=== PATIENT | female | born 1950 | race Caucasian/White ===

== ENCOUNTER 2022-08-12 09:53 | Emergency (ER) | payer MEDICARE ==
[2022-08-12 10:20] VITALS: BP 177/70; PULSE 61; O2SAT 99
--- NOTE | 2022-08-12 10:21 | ERPHSYRPT ---
- History of Present Illness Time Seen by Provider: 08/12/22 10:17 Source: patient Exam Limitations: other (Baseline dementia) Physician History: Patient is a 72-year-old female presents to our ED with her son for evaluation to pain at the anterior aspect of her right leg. Patient's son observed the area to be somewhat swollen. He pushed on it. Patient expressed pain. Patient brought patient to our ED for an examination. Patient's primary care doctor is Dr. Mendez. Patient resting comfortably. Patient declined pain medication. Patient has early dementia. Patient's son providing most of the information for this HPI. They have no other complaints. No other signs of trauma. No obvious falls. No headache. No neck pain. Cervical spine cleared clinically. No chest pain or shortness of breath. No nausea vomiting or diaphoresis. Patient has no other complaints. Son voices no other complaints or concerns at this time. Portions of this note were created with voice recognition technology. There may be grammatical, spelling, punctuation or sound alike errors Method of Injury: direct blow (Son suspects direct blow versus a fall. However patient has no signs of other trauma.) Occurred: other (Based on the resolving bruise it appears that the injury was several days ago) Quality: other (No significant pain at this time. Pain only occurs upon palpation. Patient ambulatory) Severity of Pain-Max: mild Severity of Pain-Current: none Lower Extremities Pain: leg: right Modifying Factors: Improves With: other Associated Symptoms: none (Palpation) - Review of Systems Constitutional: No Symptoms, No Fever, No Chills Eyes: No Symptoms Ears, Nose, & Throat: No Symptoms Respiratory: No Symptoms, No Cough, No Dyspnea Cardiac: No Symptoms, No Chest Pain, No Edema, No Syncope Abdominal/Gastrointestinal: No Symptoms, No Abdominal Pain, No Nausea, No Vomiting, No Diarrhea Genitourinary Symptoms: No Symptoms, No Dysuria Musculoskeletal: No Symptoms, No Back Pain, No Neck Pain Skin: No Symptoms, No Rash Neurological: No Symptoms, No Dizziness, No Focal Weakness, No Sensory Changes Psychological: No Symptoms Endocrine: No Symptoms Hematologic/Lymphatic: No Symptoms Immunological/Allergic: No Symptoms All Other Systems: Reviewed and Negative - Past Medical History Neurological History: No Pertinent History Cardiac History: No Pertinent History Respiratory History: No Pertinent History Endocrine Medical History: Diabetes Type II Musculoskeletal History: Osteoarthritis - Physical Exam General Appearance: no apparent distress, alert Eyes, Ears, Nose, Throat Exam: normal ENT inspection, moist mucous membranes Neck Exam: normal inspection, non-tender, supple Cardiovascular/Respiratory Exam: chest non-tender, normal breath sounds, regular rate/rhythm, no respiratory distress Gastrointestinal/Abdominal Exam: non-tender, guarding Back Exam: normal inspection, No vertebral tenderness Hips Exam: bilateral: non-tender, normal inspection, normal range of motion, no evidence of injury Legs Exam: right leg: pain, soft tissue tenderness, swelling, other (Resolving bruise to right anterior leg middle third. Overlying soft tissue intact. No open or draining lesions. Compartments are soft. PT DP pulse palpable. No pain at adjacent joints. No pain at hip knee or ankle/foot), left leg: non-t poncho, normal inspection, normal range of motion, no evidence of injury Knees Exam: bilateral knee: non-tender, normal inspection, normal range of motion, no evidence of injury Ankle Exam: bilateral ankle: non-tender, normal inspection, normal range of motion, no evidence of injury Foot Exam: bilateral foot: non-tender, normal inspection, normal range of motion, no evidence of injury Neuro/Tendon Exam: normal sensation, normal motor functions Mental Status Exam: alert, oriented x 3, cooperative Skin Exam: normal color, warm, dry SpO2 Interpretation: normal O2 Delivery: Room Air - Course Nursing assessment & vital signs reviewed: Yes - Radiology Exams Lower Leg X-ray Interpretation: Interpreted by me (No fracture dislocation. Minimal soft tissue swelling.) Ordered Tests: Active Orders 24 hr Category Date Time Status LOWER LEG Stat Exams 08/12/22 10:06 Ordered - Progress Progress Note: Patient reassessed. She is resting comfortably. Physical exam reveals a resolving bruise/ends swelling to the anterior third of the right tibia. Overlying soft tissue intact. The involved extremity is neurovascular intact distally. Compartments are soft. Cap refill less than 2 seconds. Patient declined pain medication. Complexity of problem addressed is low, acute uncomplicated. No critical care time Complexity of data reviewed and analyzed is moderate. Dr. Cox ordered and independently reviewed the x-rays. Formal reading pending. Patient's son served as independent historian. Risk of complication and or risk morbidity/mortality of patient management is low. Patient received an x-ray of the involved right lower extremity. No fractures or dislocations observed. Patient declined pain medication. Discharge home. Patient agrees to follow-up with her primary care doctor, Dr. Mendez within 48 hours for reevaluation. Vital stable. Time spent to discharge patient is approximately 10 minutes. No social determinants of health present to impede follow-up. Son/patient voices no other complaints or concerns at this time. Portions of this note were created with voice recognition technology. There may be grammatical, spelling, punctuation or sound alike errors 08/12/22 10:21 Counseled pt/family regarding: diagnosis, need for follow-up, rad results - Departure Departure Disposition: Home Clinical Impression: Leg pain, Contusion of leg, right Condition: Stable Critical Care Time: No Referrals: MARYCARMEN GRULLON, [Primary Care Provider] - Follow up/PCP as directed Additional Instructions: Discharge/Care Plan JESSICA BAUM was seen on 08/12/22 in the Emergency Room. The patient was counseled regarding Diagnosis,Lab results, Imaging studies, need for follow up and when to return to the Emergency Room. Prescriptions given: Discharge Note I have spoken with the patient and/or caregivers. I have explained the patient's condition, diagnosis and treatment plan based on the information available to me at this time. I have answered the patient's and/or caregiver's questions and addressed any concerns. The patient and/or caregivers have as good understanding of the patient's diagnosis, condition and treatment plan as can be expected at this point. The vital signs have been stable. The patient's condition is stable and appropriate for discharge from the emergency department. The patient will pursue further outpatient evaluation with the primary care physician or other designated or consulting physician as outlined in the discharge instructions. The patient and/or caregivers are agreeable to this plan of care and follow-up instructions have been explained in detail. The patient and/or caregivers have received these instruction. The patient/and or caregivers are aware that any significant change in condition or worsening of symptoms should prompt an immediate return to this or the closest emergency department or call 911.
--- NOTE | 2022-08-12 11:09 | XRAY ---
CLINICAL HISTORY:Fall with pain and swelling. COMPARISON:None; TECHNIQUES:X-ray right leg AP and lateral views, including the ankle and knee joint. FINDINGS: Linear hypodense line seen through the fibular head representing fracture. Normal bone mineralization. Radiological examination of right tibia and fibula demonstrates no lytic or sclerotic bone lesion. Visualized parts of the knee and ankle joints appear unremarkable. Soft tissues appear unremarkable. IMPRESSION: Suspected right fibular head fracture seen. Clinical correlation with point of maximum tenderness is suggested and further evaluation by CT scan/MRI may be considered. DISCLAIMER: A subtle bone abnormality or fracture may not be readily apparent on x-rays, thus clinical correlation and further imaging including follow-up CT, MRI, or follow-up x-rays are advised as needed. Electronically Signed by: Rupesh Mendoza MD. (08/12/2022 09:59:35 TRAINING AND DEVELOPMENT PROJECT LEADER)
== END 2022-08-12 10:37 | disposition home or self-care (01) ==
LOC: ED 09:53
DX: S80.11XA Contusion of right lower leg, initial encounter (principal); M79.661 Pain in right lower leg; R22.41 Localized swelling, mass and lump, right lower limb; E11.9 Type 2 diabetes mellitus without complications
CPT/HCPCS: 73590; 99282

== ENCOUNTER 2023-01-25 16:28 | Emergency (ER) | payer MEDICARE ==
[2023-01-25 17:13] VITALS: BP 184/70; PULSE 56; RESP 17; TEMP 97.8; O2SAT 97
[2023-01-25] MEDS ORDERED: TYLENOL 325 MG PO STA (17:21)
[2023-01-25] MEDS ORDERED: TYLENOL 325 MG ONE (17:31)
--- NOTE | 2023-01-25 17:51 | ERPHSYRPT ---
- History of Present Illness Time Seen by Provider: 01/25/23 16:46 Source: patient, family Exam Limitations: no limitations Patient Subjective Stated Complaint: Patient reports she fell at home X 2 today. She states she hurt her left shoulder when she fell the first time but it really hurts after she fell the second time. Denies hitting her head with either fall. Triage Nursing Assessment: Patient brought back to ER in a W/C. She is alert and oriented. Transferred self from W/C to bed without difficulties. No SOB. Skin tone normal. Left radial pulse present and strong. Tenderness present to left shoulder. Physician History: 72-year-old female with history of hypertension, hyperlipidemia, GERD, diabetes mellitus, issues with balance presented in the ER with chief complaint of fall with left shoulder pain. Patient reports she was on a stepstool, lost her balance and fell on her left shoulder. She reports hitting the side of bed. Did not hit her head. No loss of consciousness. Son was in another room when patient was trying to get up immediately. No loss of consciousness. No vomiting. Patient reported initially she was feeling better but now she started to have some pain more in the shoulder area, reproducible with movements of shoulder. No numbness or tingling in the left upper extremity. Denies any neck pain. No chest pain palpitations or shortness of breath. Patient has minimal restricted range of motion of the left shoulder. Has tenderness in the distal clavicle/acromioclavicular area. No crepitus. Distal neurovascular well intact. She is offered pain medication but does not want anything but Tylenol which she is given. She is not confused or altered at all and on repeated questioning denies hitting her head or injury anywhere else. X-rays shoulder I do not see any dislocation or obvious fracture except for fracture of the distal end of clavicle. X-rays are reviewed by me, official report is pending. Patient has no chest wall tenderness. She is placed in a sling and recommended outpatient orthopedics follow-up. It was a mechanical fall, do not think needs any other imaging or work-up and is stable for discharge. Allergies/Adverse Reactions: No Known Drug Allergies Allergy (Verified 01/25/23 17:06) Home Medications: Acarbose [Precose] 50 mg PO TID 08/12/22 [History] Albuterol Sulfate [Albuterol Sulfate Hfa] 2 inh IH Q6H 08/12/22 [History] Atorvastatin Calcium 10 mg PO DAILY 08/12/22 [History] Ergocalciferol (Vitamin D2) [Vitamin D2] 1 cap PO WEEKLY 08/12/22 [History] Insulin Lispro [Humalog Kwikpen U-100] 3 unit SQ TIDAC 08/12/22 [History] Losartan Potassium 100 mg PO DAILY 08/12/22 [History] Metoprolol Tartrate [Lopressor] 100 mg PO BID 08/12/22 [History] Omeprazole 20 mg PO DAILY 08/12/22 [History] Umeclidinium Brm/Vilanterol Tr [Anoro Ellipta 62.5-25 Mcg INH] 1 each IH DAILY 08/12/22 [History] hydroCHLOROthiazide [Hydrochlorothiazide] 12.5 mg PO DAILY 08/12/22 [History] Hx Tetanus, Diphtheria Vaccination/Date Given: Yes Hx Influenza Vaccination/Date Given: Yes Hx Pneumococcal Vaccination/Date Given: Yes Immunizations Up to Date: Yes Travel Risk - International Travel Have you traveled outside of the country in past 3 weeks: No - Coronavirus Screening Are you exhibiting any of the following symptoms?: No Close contact with a COVID-19 positive Pt in past 14-21 Days: No - Vaccine Status Have you recieved a Covid-19 vaccination: Yes 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[employer] - Vaccination Dates Date of 2cond Vaccination (if applicable): 2020 - Review of Systems Constitutional: No Symptoms Eyes: No Symptoms Ears, Nose, & Throat: No Symptoms Respiratory: No Symptoms Cardiac: No Symptoms Abdominal/Gastrointestinal: No Symptoms Genitourinary Symptoms: No Symptoms Musculoskeletal: Fall, Joint Pain Skin: No Symptoms Neurological: No Symptoms Psychological: No Symptoms Hematologic/Lymphatic: No Symptoms Immunological/Allergic: No Symptoms - Past Medical History Pertinent Past Medical History: Yes Neurological History: No Pertinent History Cardiac History: Hypertension Respiratory History: COPD, Sleep Apnea Endocrine Medical History: Diabetes Type II Musculoskeletal History: Fractures, Osteoarthritis - Past Surgical History Past Surgical History: Yes Female Surgical History: Tubal Ligation - Social History Smoking Status: Former smoker Exposure to second hand smoke: No Drug Use: none Patient Lives Alone: No (son) - Nursing Vital Signs Nursing Vital Signs: Initial Vital Signs Pulse Rate 61 01/25/23 17:02 Blood Pressure 184/70 01/25/23 17:02 O2 Sat by Pulse Oximetry 96 01/25/23 17:02 Pain Scale Pain Intensity 9 - Physical Exam General Appearance: no apparent distress, alert Eyes, Ears, Nose, Throat Exam: normal ENT inspection Neck Exam: normal inspection, non-tender, supple, full range of motion, No meningismus Cardiovascular/Respiratory Exam: chest non-tender, normal breath sounds, regular rate/rhythm Abdominal Exam: non-tender, soft, no organomegaly Back Exam: normal inspection, normal range of motion, No CVA tenderness, No vertebral tenderness Shoulder Exam: normal inspection, bone tenderness, limited ROM, soft tissue tenderness Elbow/Forearm Exam: normal inspection, non-tender, no evidence of injury, normal ROM Wrist Exam: normal inspection, non-tender, no evidence of injury, normal ROM Neuro/Tendon Exam: normal sensation, normal motor functions Mental Status Exam: alert, oriented x 3, cooperative Skin Exam: normal color SpO2 Interpretation: normal SpO2: 97 O2 Delivery: Room Air Ordered Tests: Active Orders 24 hr Category Date Time Status CLAVICLE Stat Exams 01/25/23 17:20 Taken SHOULDER Stat Exams 01/25/23 17:05 Taken Medication Summary Discontinued Medications Generic Name Dose Route Start Last Admin Trade Name Yonatan PRN Reason Stop Dose Admin Acetaminophen 975 mg 01/25/23 17:21 01/25/23 17:32 Acetaminophen 325 Mg Tablet PO 01/25/23 17:22 975 mg STAT STA Administration Acetaminophen Confirm 01/25/23 17:31 Acetaminophen 325 Mg Tablet Administered 01/25/23 17:32 Dose 975 mg .ROUTE .STK-MED ONE - Progress Progress: pain not gone completely, re-examined Progress Note: 01/25/23 17:50 72-year-old female with history of hypertension, hyperlipidemia, GERD, diabetes mellitus, issues with balance presented in the ER with chief complaint of fall with left shoulder pain. Patient reports she was on a stepstool, lost her balance and fell on her left shoulder. She reports hitting the side of bed. Did not hit her head. No loss of consciousness. Son was in another room when patient was trying to get up immediately. No loss of consciousness. No vomiting. Patient reported initially she was feeling better but now she started to have some pain more in the shoulder area, reproducible with movements of shoulder. No numbness or tingling in the left upper extremity. Denies any neck pain. No chest pain palpitations or shortness of breath. Patient has minimal restricted range of motion of the left shoulder. Has tenderness in the distal clavicle/acromioclavicular area. No crepitus. Distal neurovascular well intact. She is offered pain medication but does not want anything but Tylenol which she is given. She is not confused or altered at all and on repeated questioning denies hitting her head or injury anywhere else. X-rays shoulder I do not see any dislocation or obvious fracture except for fracture of the distal end of clavicle. X-rays are reviewed by me, official report is pending. Patient has no chest wall tenderness. She is placed in a sling and recommended outpatient orthopedics follow-up. It was a mechanical fall, do not think needs any other imaging or work-up and is stable for discharge. Counseled pt/family regarding: diagnosis, need for follow-up, rad results Medical Desision Making - Independent Historian Additional History obtained from: Child, Family - Diagnostic Testing Diagnostic test were ordered, analyzed, and reviewed by me: Yes Radiological Interpretation: Interpreted by me, Reviewed by me - Departure Departure Disposition: Home Clinical Impression: Closed fracture of distal clavicle, Fall, Shoulder contusion Condition: Stable Critical Care Time: No Referrals: WING KRAMER DO [Primary Care Provider] - Follow up with PCP 1 day ORTHO - JAYY LANGLEY NP [NON-STAFF PHY W/O PRIVILEGES] - Follow up/PCP as directed (Tomorrow for reevaluation) Instructions: Preventing Falls ED, Broken Collarbone (DC), Head Injury in Adults (DC) Additional Instructions: Intermittent ice application. Tylenol as needed for pain. Use cane for walker to avoid a fall. Follow-up with primary care and orthopedist for reevaluation in 1 to 2 days. Return to ER for any worsening. Follow head injury ins tructions return to ER for any signs symptoms of head injury like intractable headache, vomiting, numbness tingling weakness, not acting at herself.
--- NOTE | 2023-01-25 18:06 | XRAY ---
Indication: Pain following fall. Comparison: None 2 view left clavicle demonstrates minimally displaced fracture distal shaft clavicle. Incidental osteopenia. No other bony, articular, or soft tissue abnormalities.
--- NOTE | 2023-01-25 18:06 | XRAY ---
Indication: Pain following fall. Comparison: None 3 view left shoulder demonstrates minimally displaced fracture distal shaft clavicle. Incidental osteopenia and tiny mid lung calcified granuloma. No other bony, articular, or soft tissue abnormalities.
== END 2023-01-25 18:08 | disposition home or self-care (01) ==
LOC: ED 16:28
DX: S42.032A Displaced fracture of lateral end of left clavicle, initial encounter for closed fracture (principal); S40.012A Contusion of left shoulder, initial encounter; W08.XXXA Fall from other furniture, initial encounter; Y92.003 Bedroom of unspecified non-institutional (private) residence as the place of occurrence of the external cause; E78.5 Hyperlipidemia, unspecified; I10 Essential (primary) hypertension; E11.9 Type 2 diabetes mellitus without complications; Z79.4 Long term (current) use of insulin; Z79.899 Other long term (current) drug therapy
CPT/HCPCS: 73000; 73030; 99283; A9270-GY

== ENCOUNTER 2024-02-27 13:43 | Emergency (ER) | payer MEDICARE ==
[2024-02-27 14:01] VITALS: TEMP 98.4
[2024-02-27 14:37] LABS: BASOPHIL % 0.7 % (0.1-1.2); Basophil (Absolute #) 0.03 x10^3/uL (0.01-0.08); Eosinophil % 0.2 % (0.7-5.8); Eosinophil (Absolute #) 0.01 x10^3/uL (0.04-0.36); Hematocrit 38.2 % (34.1-44.9); Hemoglobin 13.4 g/dL (11.2-15.7); IMMATURE GRAN # 0.01 x10^3u/L (0.001-0.031); IMMATURE GRAN % 0.2 % (0.001-0.429); Lymphocyte (Absolute #) 0.85 x10^3/uL (1.18-3.74); Lymphocytes % 20.6 % (19.3-51.7); Mean Cell Volume 96.2 fL (79.4-94.8); Mean Corpuscular Hemoglobin 33.8 pg (25.6-32.2); Mean Corpuscular Hgb Concent. 35.1 g/dL (32.2-35.5); Mean Platelet Volume 10.2 fL (9.4-12.3); Monocyte (Absolute #) 0.52 x10^3/uL (0.24-0.86); Monocytes % 12.6 % (4.7-12.5); Neutrophil % 65.7 % (34.0-71.1); Platelet Count 147 x10^3/uL (182-369); Red Blood Count 3.97 x10^6/uL (3.93-5.22); Red Cell Distribution Width 11.9 % (11.7-14.4); White Blood Count 4.1 x10^3/uL (3.98-10.04)
[2024-02-27 14:53] LABS: ALBUMIN 4.3 g/dL (3.5-5.0); ANION GAP 12.6 MEQ/L (5-15); BILIRUBIN,TOTAL 0.8 mg/dL (0.2-1.3); Creatinine 1 0.72 mg/dL (0.52-1.04); EST GLOMERULAR FILTRATION RATE 88.8 ML/MIN; MAGNESIUM 1.5 mg/dL (1.6-2.3); Potassium 4.2 mmol/L (3.5-5.1); Total Protein 6.6 g/dL (6.3-8.2)
[2024-02-27 15:16] LABS: Appearance Clear (Clear); Bacteria None Seen /HPF (None Seen); Bilirubin Negative (Negative); Blood Negative (Negative); Epithelial Cells None Seen /HPF (None Seen); Glucose, Urine Negative (Negative); Hyaline Casts NONE SEEN /LPF (0-2); Ketones Negative (Negative); Leukocyte Esterase Negative (Negative); Nitrite Negative (Negative); Ph 5.5 (4.6-8.0); Protein,Urine Dip Negative (Negative); RBC 0-2 /HPF (0-5); Urobilinogen 0.2 mg/dL (0.2); WBC 0-2 /HPF (0-5)
--- NOTE | 2024-02-27 15:20 | XRAY ---
CLINICAL HISTORY: gen weakness, gait changes COMPARISON: None. TECHNIQUE: An axial non-contrast CT scan of the brain was performed from the skull base to the high parietal region. One of the following dose reduction techniques was utilized for this exam: Automated exposure control, adjustment of the mA and/or kV according to patient size, and use of iterative reconstruction. FINDINGS: Mild symmetrical dilatation of the supratentorial ventricles. General atrophic changes, with Deepening of the cortical sulci, basal cisterns, and sylvian fissures. Small hypodense focus at the right hippocampal region, maybe a small cyst, rather than an old lacunar infarct. Densely calcified pineal body. Normal CT features of the basal ganglia, internal capsules, and thalami. 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 No shift of midline structures was detected. No intra or extra-axial collections. Normal posterior fossa structures. IMPRESSION: 1. No acute intracranial abnormality. 2. No acute territorial infarction, hemorrhagic pathology 3. Generalized involutional changes with chronic microvascular ischemic changes. 4. Early changes of acute ischemic infarct may sometimes not be detected on a CT scan. If clinically suspicious, MRI with diffusion-weighted imaging may be recommended for further evaluation. [facility] was called at [phone] at 02:13 PM FRAME CATCHER, 02/27/2024, and Nurse Shruthi was informed regarding the stroke results. Electronically Signed by: Rupesh Mendoza MD. (02/27/2024 15:16:51 EST)
[2024-02-27] MEDS ORDERED: DUONEB 0.5-3 MG/3 ml Neb IH ONE (17:26)
[2024-02-27 17:27] LABS: INFLUENZA B NEGATIVE (NEGATIVE); RESPIRATORY SYNCTIAL VIRUS NEGATIVE (NEGATIVE); SARS-CoV-2 Xpert Express NEGATIVE (NEGATIVE)
[2024-02-27] MEDS: DUONEB 0.5-3 MG/3 ml Neb IH ONE (17:30)
[2024-02-27] MEDS ORDERED: DELTASONE 20 MG ONE (17:34)
[2024-02-27] MEDS: DELTASONE 20 MG PO ONE (17:36)
[2024-02-27 17:37] LABS: INFLUENZA A POSITIVE (NEGATIVE)
[2024-02-27 17:42] VITALS: PULSE 74; RESP 24
[2024-02-27 17:43] VITALS: O2SAT 90
--- NOTE | 2024-02-27 17:43 | ERPHSYRPT ---
- History of Present Illness Time Seen by Provider: 02/27/24 13:57 Source: patient Exam Limitations: no limitations Patient Subjective Stated Complaint: Pt was at [facility] and they sent her to the ER after being there all morning, family states that the pt does have alfonzo ntia but she started scooting her feet this morning and is concerned with maybe a stroke Triage Nursing Assessment: Pt brought to the ER by her family after being at [facility], hypertensive, denies pain, pt appears just slightly weaker on the left side, unable to answer many questions correctly, pulses normal, skin n/w/d, no chest pain, doesn't appear to be in any distress Physician History: 73 years old female with history of advanced dementia, hypertension, diabetes mellitus, COPD, currently vaping is sent in ER from [facility] as patient is having cough since yesterday and this morning she was weak fatigued tired and not acting herself. She was having difficulty ambulating without assistance. Family was concerned that she might have a stroke. She does not have any chest pain or palpitations. Does have wheezing which she usually have with her COPD. No fever or chills reported. No abdominal pain nausea vomiting or diarrhea. Patient is moving all 4 extremities without any limitations and have no obvious focal neurodeficit. Patient is pleasantly confused. Answering most of the questions. Not a good historian and history is limited. Allergies/Adverse Reactions: No Known Drug Allergies Allergy (Verified 02/27/24 14:01) Home Medications: Atorvastatin Calcium 40 mg PO DAILY 08/12/22 [History] Losartan Potassium 100 mg PO DAILY 08/12/22 [History] Metoprolol Tartrate [Lopressor] 100 mg PO BID 08/12/22 [History] Omeprazole 20 mg PO DAILY 08/12/22 [History] hydroCHLOROthiazide [Hydrochlorothiazide] 12.5 mg PO DAILY 08/12/22 [History] Ergocalciferol (Vitamin D2) [Vitamin D2] 50,000 units PO WEEKLY 02/27/24 [History] Escitalopram Oxalate 20 mg PO DAILY 02/27/24 [History] Insulin Detemir [Levemir] 14 unit SQ DAILY 02/27/24 [History] Insulin Lispro-Aabc [Lyumdavid Kwikpen U-100] 0 unit SQ AC 02/27/24 [History] Metformin HCl 500 mg [Glucophage 500 MG] 500 mg PO BIDWM 02/27/24 [History] Trazodone HCl 50 mg [Desyrel 50 mg] 25 mg PO HS 02/27/24 [History] Hx Tetanus, Diphtheria Vaccination/Date Given: Yes Hx Influenza Vaccination/Date Given: Yes Hx Pneumococcal Vaccination/Date Given: Yes Travel Risk - International Travel Have you traveled outside of the country in past 3 weeks: No - Emerging Infectious Disease Are you exhibiting symptoms associated with any current EIDs: No - Review of Systems All Other Systems: Unable due to dementia - Past Medical History Pertinent Past Medical History: Yes Neurological History: No Pertinent History Cardiac History: Hypertension Respiratory History: COPD, Sleep Apnea Endocrine Medical History: Diabetes Type II Musculoskeletal History: Fractures, Osteoarthritis - Past Surgical History Past Surgical History: Yes Female Surgical History: Tubal Ligation - Social History Smoking Status: Former smoker Exposure to second hand smoke: No Drug Use: none Patient Lives Alone: No (son) - Social Determinants of Health Will the patient participate in the screening: Yes Do you worry about a steady place to live?: No Do you have any problems with any of the following?: No known problems In the past 12 months,have you had to go without utilities?: No Transportation Issues: No Has anyone in your support network made you feel unsafe?: No Have you or anyone in your house had to go without enough: No - Nursing Vital Signs Nursing Vital Signs: Initial Vital Signs Temperature 98.4 F 02/27/24 13:48 Pulse Rate 63 02/27/24 13:48 Blood Pressure 147/80 02/27/24 13:48 O2 Sat by Pulse Oximetry 93 L 02/27/24 13:48 Pain Scale Pain Intensity 0 - Physical Exam General Appearance: no apparent distress, alert Eye Exam: PERRL/EOMI Ears, Nose, Throat Exam: normal ENT inspection Neck Exam: normal inspection, supple, full range of motion Respiratory Exam: wheezing Cardiovascular Exam: regular rate/rhythm, normal heart sounds Gastrointestinal/Abdomen Exam: soft, normal bowel sounds, No tenderness Back Exam: normal inspection Extremity Exam: normal inspection, normal range of motion Neurologic Exam: alert, cooperative, tinner automatic II-XII nml as tested, nml station & gait, sensation nml, No oriented x 3, No motor deficits Skin Exam: normal color SpO2 Interpretation: normal SpO2: 90 O2 Delivery: Room Air Ordered Tests: Active Orders 24 hr Category Date Time Status IV Insertion STAT Care 02/27/24 14:23 Active CHEST 1 VIEW (PORTABLE) Stat Exams 02/27/24 14:24 Taken HEAD WITHOUT CONTRAST [CT] Stat Exams 02/27/24 14:24 Completed BLOOD CULTURE Stat Lab 02/27/24 15:01 Received CBC W DIFF Stat Lab 02/27/24 14:15 Completed CMP Stat Lab 02/27/24 14:15 Completed Lactic Acid Stat Lab 02/27/24 14:35 Completed MAGNESIUM Stat Lab 02/27/24 14:15 Completed POCT GLUCOSE Stat Lab 02/27/24 17:06 Completed TROPONIN Q4H Lab 02/27/24 14:15 Completed TROPONIN Q4H Lab 02/27/24 18:30 Ordered TROPONIN Q4H Lab 02/27/24 22:30 Ordered UA W/RFX UR CULTURE Stat Lab 02/27/24 15:06 Completed Medication Summary Discontinued Medications Generic Name Dose Route Start Last Admin Trade Name Freq PRN Reason Stop Dose Admin Albuterol/Ipratropium 3 ml 02/27/24 17:18 Ipratropium/Albuterol Sulfate 3 Ml Ampul.Neb IH 02/27/24 17:19 STAT ONE Albuterol/Ipratropium Confirm 02/27/24 17:26 Ipratropium/Albuterol Sulfate 3 Ml Ampul.Neb Administered 02/27/24 17:27 Dose 3 ml IH .STK-MED ONE Prednisone 60 mg 02/27/24 17:18 Prednisone 20 Mg Tablet PO 02/27/24 17:19 STAT ONE Prednisone Confirm 02/27/24 17:34 Prednisone 20 Mg Tablet Administered 02/27/24 17:35 Dose 60 mg .ROUTE .STK-MED ONE Lab/Rad Data: Laboratory Result Diagrams 02/27/24 14:15 02/27/24 14:15 Laboratory Results 02/27/24 02/27/24 02/27/24 Range/Units 17:06 15:06 14:35 WBC (3.98-10.04) x10^3/uL RBC (3.93-5.22) x10^6/uL Hgb (11.2-15.7) g/dL Hct (34.1-44.9) % MCV (79.4-94.8) fL MCH (25.6-32.2) pg MCHC (32.2-35.5) g/dL RDW (11.7-14.4) % Plt Count (182-369) x10^3/uL MPV (9.4-12.3) fL Gran % (34.0-71.1) % Immature Gran % (Auto) (0.001-0.429) % Nucleat RBC Rel Count (0.00-0.2) % Eos # (Auto) (0.04-0.36) x10^3/uL Immature Gran # (Auto) (0.001-0.031) x10^3u/L Absolute Lymphs (auto) (1.18-3.74) x10^3/uL Absolute Monos (auto) (0.24-0.86) x10^3/uL Absolute Nucleated RBC (0.00-0.012) x10^3u/L Lymphocytes % (19.3-51.7) % Monocytes % (4.7-12.5) % Eosinophils % (0.7-5.8) % Basophils % (0.1-1.2) % Absolute Granulocytes (1.56-6.13) x10^3/uL Basophils # (0.01-0.08) x10^3/uL Sodium (135-145) mmol/L Potassium (3.5-5.1) mmol/L Chloride (98-107) mmol/L Carbon Dioxide (22-30) mmol/L Anion Gap (5-15) MEQ/L BUN (7-17) mg/dL Creatinine (0.52-1.04) mg/dL Estimated GFR ML/MIN Glucose (74-106) mg/dL POC Glucometer 209 H (74 to 106) mg/dL Lactic Acid 1.4 (0.4-2.0) Calcium (8.4-10.2) mg/dL Magnesium (1.6-2.3) mg/dL Total Bilirubin (0.2-1.3) mg/dL AST (14-36) U/L ALT (0-35) U/L Alkaline Phosphatase (38-126) U/L Troponin I (0.000-0.033) ng/mL Serum Total Protein (6.3-8.2) g/dL Albumin (3.5-5.0) g/dL Urine Color Yellow (Yellow) Urine Appearance Clear (Clear) Urine pH 5.5 (4.6-8.0) Ur Specific Dewitt 1.010 (1.005-1.030) Urine Protein Negative (Negative) Urine Glucose (UA) Negative (Negative) mg/dL Urine Ketones Negative (Negative) Urine Blood Negative (Negative) Urine Nitrite Negative (Negative) Urine Bilirubin Negative (Negative) Urine Urobilinogen 0.2 (0.2) mg/dL Ur Leukocyte Esterase Negative (Negative) U Hyaline Cast (Auto) NONE SEEN (0-2) /LPF Urine Microscopic RBC 0-2 (0-5) /HPF Urine Microscopic WBC 0-2 (0-5) /HPF Ur Epithelial Cells None Seen (None Seen) /HPF Urine Bacteria None Seen (None Seen) /HPF Urine Culture Reflexed NO (NO) 02/27/24 02/27/24 02/27/24 Range/Units 14:15 14:15 14:15 WBC 4.1 (3.98-10.04) x10^3/uL RBC 3.97 (3.93-5.22) x10^6/uL Hgb 13.4 (11.2-15.7) g/dL Hct 38.2 (34.1-44.9) % MCV 96.2 H (79.4-94.8) fL MCH 33.8 H (25.6-32.2) pg MCHC 35.1 (32.2-35.5) g/dL RDW 11.9 (11.7-14.4) % Plt Count 147 L (182-369) x10^3/uL MPV 10.2 (9.4-12.3) fL Gran % 65.7 (34.0-71.1) % Immature Gran % (Auto) 0.2 (0.001-0.429) % Nucleat RBC Rel Count 0.0 (0.00-0.2) % Eos # (Auto) 0.01 L (0.04-0.36) x10^3/uL Immature Gran # (Auto) 0.01 (0.001-0.031) x10^3u/L Absolute Lymphs (auto) 0.85 L (1.18-3.74) x10^3/uL Absolute Monos (auto) 0.52 (0.24-0.86) x10^3/uL Absolute Nucleated RBC 0.00 (0.00-0.012) x10^3u/L Lymphocytes % 20.6 (19.3-51.7) % Monocytes % 12.6 H (4.7-12.5) % Eosinophils % 0.2 L (0.7-5.8) % Basophils % 0.7 (0.1-1.2) % Absolute Granulocytes 2.70 (1.56-6.13) x10^3/uL Basophils # 0.03 (0.01-0.08) x10^3/uL Sodium 131 L (135-145) mmol/L Potassium 4.2 (3.5-5.1) mmol/L Chloride 97 L (98-107) mmol/L Carbon Dioxide 26 (22-30) mmol/L Anion Gap 12.6 (5-15) MEQ/L BUN 18 H (7-17) mg/dL Creatinine 0.72 (0.52-1.04) mg/dL Estimated GFR 88.8 ML/MIN Glucose 221 H (74-106) mg/dL POC Glucometer (74 to 106) mg/dL Lactic Acid (0.4-2.0) Calcium 10.0 (8.4-10.2) mg/dL Magnesium 1.5 L (1.6-2.3) mg/dL Total Bilirubin 0.80 (0.2-1.3) mg/dL AST 37 H (14-36) U/L ALT 29 (0-35) U/L Alkaline Phosphatase 60 (38-126) U/L Troponin I < 0.012 (0.000-0.033) ng/mL Serum Total Protein 6.6 (6.3-8.2) g/dL Albumin 4.3 (3.5-5.0) g/dL Urine Color (Yellow) Urine Appearance (Clear) Urine pH (4.6-8.0) Ur Specific Dewitt (1.005-1.030) Urine Protein (Negative) Urine Glucose (UA) (Negative) mg/dL Urine Ketones (Negative) Urine Blood (Negative) Urine Nitrite (Negative) Urine Bilirubin (Negative) Urine Urobilinogen (0.2) mg/dL Ur Leukocyte Esterase (Negative) U Hyaline Cast (Auto) (0-2) /LPF Urine Microscopic RBC (0-5) /HPF Urine Microscopic WBC (0-5) /HPF Ur Epithelial Cells (None Seen) /HPF Urine Bacteria (None Seen) /HPF Urine Culture Reflexed (NO) - Progress Progress: improved Progress Note: 02/27/24 17:44 73 years old with multiple medical problems including COPD, diabetes mellitus, hypertension, vaping tobacco products is evaluated in the ER for generalized weakness fatigue tiredness and not acting herself. She has no focal neurodeficit. Patient was able to ambulate in the ER to the bathroom without assistance. She is not fully oriented which according to son she does have dementia and having similar episodes in the past as well. She is afebrile. She is given breathing treatment and a dose of steroid. Workup showed normal white count, chemistries fairly unremarkable except for mildly elevated glucose, mildly low sodium and magnesium. Chest x-ray did not appreciate any acute cardiopulmonary findings and does have chronic changes reviewed by me with pending official read. She does have positive influenza A. I have discussed with patient and family in detail about observation in the hospital versus going home and they are comfortable with taking her home which I believe is reasona ble. I believe patient has influenza A with some element of COPD exacerbation, I would treat her with Z-Yamil and Tamiflu and will give albuterol inhaler to go home. Discussed signs symptoms of worsening needing return to ER which patient/family seem understanding. Stable for discharge. 02/27/24 17:47 Counseled pt/family regarding: lab results, diagnosis, need for follow-up, rad results Medical Desision Making - Independent Historian Additional History obtained from: Child - Diagnostic Testing Diagnostic test were ordered, analyzed, and reviewed by me: Yes Radiological Interpretation: Interpreted by me, Reviewed by me - Risk of complications The pt has a mod risk of morbidity or mortality based on: Need for prescription drug management - Departure Departure Disposition: Home Clinical Impression: COPD exacerbation, Influenza A Condition: Stable Critical Care Time: No Referrals: WING KRAMER DO [Primary Care Provider] - Follow up with PCP 1 day Instructions: Chronic Obstructive Pulmonary Disease, Flu, Adult ED, COPD exacerbation - Discharge instructions Additional Instructions: Do not smoke/vape. Take Tylenol/ibuprofen as needed. Follow-up with primary care for reevaluation. Use inhaler as needed. Return to ER for worsening of symptoms like generalized weakness, worsening cough or if develop difficulty breathing, chest pain, fever etc. Prescriptions: Oseltamivir 75 mg [Tamiflu 75MG Capsule] 75 mg PO BID #10 cap Azithromycin 250 mg [Zithromax 250 MG TABLET] 250 mg PO ZPACK #6 tablet
[2024-02-27] MEDS ORDERED: Tamiflu 75MG Capsule PO ONE (17:49)
[2024-02-27] MEDS: Tamiflu 75MG Capsule PO ONE (17:51)
[2024-02-27 17:55] VITALS: BP 153/95
--- NOTE | 2024-02-27 23:10 | XRAY ---
Indication: Cough. Comparison: None Portable chest hyperinflated and clear. Heart not enlarged with slightly tortuous descending aorta. Bony thorax intact with osteopenia and mild degenerative changes. Impression: Nonacute hyperinflated chest with chronic features.
== END 2024-02-27 18:00 | disposition home or self-care (01) ==
LOC: ED 13:43
DX: J10.1 Influenza due to other identified influenza virus with other respiratory manifestations (principal); J44.1 Chronic obstructive pulmonary disease with (acute) exacerbation; F03.90 Unspecified dementia, unspecified severity, without behavioral disturbance, psychotic disturbance, mood disturbance, and anxiety; E11.9 Type 2 diabetes mellitus without complications; I10 Essential (primary) hypertension
CPT/HCPCS: 0241U; 36415; 70450; 71045; 80053; 81001; 82947; 83605; 83735; 84484; 85025; 87040; 94640; 99284; A9270-GY